=== PATIENT | female | born 2000 | race Caucasian/White ===

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

== ENCOUNTER 2021-02-14 21:03 | Emergency (ER) | payer OTHER ==
[~2021-02-14 21:03] MED LIST: MACROBID100 MG PO; ZOFRAN4 MG PO
== END 2021-02-14 21:48 | disposition home or self-care (01) ==
LOC: FER 21:03
DX: S09.90XA Unspecified injury of head, initial encounter (principal); R11.0 Nausea; F17.290 Nicotine dependence, other tobacco product, uncomplicated; W22.03XA Walked into furniture, initial encounter; Y92.89 Other specified places as the place of occurrence of the external cause; Y99.0 Civilian activity done for income or pay
CPT/HCPCS: 99283

== ENCOUNTER 2021-03-05 10:14 | Emergency (ER) | payer OTHER ==
[2021-03-05 11:08] LABS: BILIRUBIN NEGATIVE (NEGATIVE); BLOOD NEGATIVE Ery/uL (NEGATIVE); CLARITY CLEAR (CLEAR); COLOR YELLOW (YELLOW); GLUCOSE (U) NORMAL (NORMAL); LEUKOCYTES NEGATIVE Leu/uL (NEGATIVE); NITRITE NEGATIVE (NEGATIVE); PROTEIN NEGATIVE (NEGATIVE); SPECIFIC GRAVITY >=1.030 (1.001-1.030); UROBILINOGEN 0.2 mg/dL (0.2-1.0)
[2021-03-05 11:19] LABS: BACTERIA 1+
[2021-03-05 11:20] LABS: CALCIUM OXALATE CRYSTALS MODERATE; MUCOUS MODERATE
[2021-03-05 11:27] LABS: BASOPHIL 0.3 % (0-2); EOSINOPHIL 2.7 % (0-5); HCT 39.6 % (37.0-47.0); HGB 12.7 g/dl (12.5-16.0); MCH 28.3 pg (25.0-31.0); MCHC 32.1 g/dL (32.0-36.0); MCV 88.4 fL (78.0-100.0); MONOCYTE 9.8 % (0-12); MPV 11.1 fL (6.0-9.5); NEUTROPHIL 49.9 % (41-80); NRBC 0; PLT 204 K/uL (150-400); RBC 4.48 M/uL (4.20-5.40); RDW 12.8 % (11.5-14.0); WBC 6.7 K/uL (4.0-10.5)
[2021-03-05 11:40] LABS: BUN/CREAT RATIO (CALC) 13.5 RATIO; CREATININE 0.74 mg/dL (0.51-0.95); POTASSIUM 3.8 mmol/L (3.5-5.1)
[2021-03-05] MEDS ORDERED: ONDANSETRON ODT4 MG PO ×3 (11:44→12:00)
== END 2021-03-05 12:05 | disposition home or self-care (01) ==
LOC: FER 10:14
PROVIDERS: Emergency Medicine
DX: K52.9 Noninfective gastroenteritis and colitis, unspecified (principal)
CPT/HCPCS: 36415; 80048; 81001; 85025; 99284

== ENCOUNTER 2021-06-22 22:06 | Emergency (ER) | payer OTHER ==
[~2021-06-22 22:06] MED LIST changes: +ONDANSETRON ODT4 MG PO
[2021-06-23] MEDS ORDERED: XANAX0.5 MG PO (00:29)
== END 2021-06-23 00:45 | disposition home or self-care (01) ==
LOC: FER 22:06
DX: F41.0 Panic disorder [episodic paroxysmal anxiety] (principal); F17.290 Nicotine dependence, other tobacco product, uncomplicated
CPT/HCPCS: 93005

== ENCOUNTER 2021-08-10 13:49 | Emergency (ER) | payer OTHER ==
[~2021-08-10 13:49] MED LIST changes: +XANAX0.5 MG PO
== END 2021-08-10 14:43 | disposition home or self-care (01) ==
LOC: FER 13:49
DX: L23.7 Allergic contact dermatitis due to plants, except food (principal)
CPT/HCPCS: J1100